=== PATIENT | female | born 1990 | race Caucasian/White ===

== ENCOUNTER 2017-12-04 14:40 | Inpatient (IN) | payer BC ==
[~2017-12-04] VITALS: Ht 165.1 cm; Wt 88.2 kg
[2017-12-05] VITALS (60 sets, daily range): BP systolic 98–131; BP diastolic 55–87; PULSE 61–104; TEMP 97.5–99.6
[2017-12-05] MEDS ORDERED: PRENATAL1 TA7 PO (07:36)
[2017-12-05 08:20] LABS: BASO # 0.1 (0.0-0.2); BASO % 0.8 % (0.0-2.0); EOS # 0.1 (0.0-0.7); EOS % 1.3 % (0-4.0); GRAN # 5.3 (1.4-6.5); GRAN % 66.5 % (42.2-75.2); HEMATOCRIT 37.9 % (37.0-47.0); HEMOGLOBIN 12.8 g/dl (12.5-16.0); LYMPH # 1.8 (1.2-3.4); LYMPH % 22.4 % (20.0-51.0); MEAN CELL VOLUME 94 fl (80.0-100.0); MEAN CORPUSCULAR HEMOGLOBIN 32 pg (27.0-31.0); MEAN CORPUSCULAR HGB CONC 34 g/dl (33.0-37.0); MEAN PLATELET VOLUME 10.8 fl (7.4-10.4); MONO # 0.6 (0.1-0.6); MONO % 7.9 % (1.7-9.3); PLATELET COUNT 256 K/mm3 (130-400); RED BLOOD COUNT 4.02 M/mm3 (4.10-5.30); REDCELL DISTRIBUTION WIDTH-CV 12.9 % (11.5-14.5)
[2017-12-05] MEDS ORDERED: PERCOCET 325 MG1 TA2 PO (09:26)
[2017-12-05] MEDS ORDERED: MOTRIN 800800 MG/TAB PO (09:26)
[2017-12-06] VITALS (8 sets, daily range): BP systolic 106–131; BP diastolic 59–72; PULSE 66–92; TEMP 97.5–98.2
[2017-12-07 08:00] VITALS: BP 125/69; PULSE 75; TEMP 98.1
[2017-12-07] MEDS ORDERED: PERCOCET 325 MG1 TA2 PO (08:34)
== END 2017-12-07 17:15 | disposition home or self-care (01) | DRG 775 ==
LOC: LDR 12-05 07:05 → OB 12-06 01:00
PROVIDERS: Obstetrics & Gynecology
PROC: 10E0XZZ Delivery of Products of Conception, External Approach (ICD-10-PCS; principal; 2017-12-05)
PROC: 0KQM0ZZ Repair Perineum Muscle, Open Approach (ICD-10-PCS; 2017-12-05)
PROC: 10907ZC Drainage of Amniotic Fluid, Therapeutic from Products of Conception, Via Natural or Artificial Opening (ICD-10-PCS; 2017-12-05)
PROC: 3E033VJ Introduction of Other Hormone into Peripheral Vein, Percutaneous Approach (ICD-10-PCS; 2017-12-05)
DX: O34.211 Maternal care for low transverse scar from previous cesarean delivery (principal); Z3A.39 39 weeks gestation of pregnancy; Z37.0 Single live birth; O70.1 Second degree perineal laceration during delivery; Z22.330 Carrier of Group B streptococcus; O62.2 Other uterine inertia
CPT/HCPCS: J1200; J2210; J2405; J2540; J2590; J7120